=== PATIENT | female | born 1950 | race Caucasian/White ===

== ENCOUNTER 2020-04-12 11:38 | Emergency (ER) | payer MEDICARE, BC, OTHER ==
[2020-04-12] MEDS ORDERED: Sodium Chloride 0.9% 10 ML Syringe FLUSH PRN (11:46)
[2020-04-12] MEDS ORDERED: cefTRIAXone 1 GM in Sodium Chloride 0.9% 50 ML IV SCH (13:15)
[2020-04-12] MEDS ORDERED: Sodium Chloride 0.9% 1,000 ML IV SCH ×2 (13:15→15:30)
--- NOTE | 2020-04-12 13:28 | EDM.PDOC ---
ED HPI GENERAL MEDICAL PROBLEM - General Chief Complaint: General Time Seen by Provider: 04/12/20 12:55 Source of Information: Reports: Patient History Limitations: Reports: No Limitations - History of Present Illness INITIAL COMMENTS - FREE TEXT/NARRATIVE: Patient presented to the ED because weakness, poor oral intake, diarrhea and dizziness. 2 months ago-She started to have diarrhea which is watery, non-bloody. According to Jennifer she noticed that she have diarrhea after taking her iron supplements. There is no associated abdominal pain, nausea or vomiting. Denies any urinary symptoms 5 days ago- Poor appetite and is feeling weak and dizzy. She has just been eating toast and drinks gatorade 3 days ago-Started to have productive cough, no fever,chills or dyspnea 1 day ago- Her legs gave out and almost fell, weakness and dizziness are worse. - Related Data Allergies Allergy/AdvReac Type Severity Reaction Status Date / Time No Known Allergies Allergy Verified 04/12/20 12:32 Home Meds: Home Meds Ascorbic Acid [Vitamin C] 1,000 mg PO DAILY 04/12/20 [History] Aspirin 81 mg PO QPM 04/12/20 [History] Fenofibrate,Micronized [Fenofibrate] 134 mg PO QPM 04/12/20 [History] Ferrous Sulfate 325 mg PO BID 04/12/20 [History] Insulin Detemir [Levemir] 100 units SQ BID 04/12/20 [History] Latanoprost/Pf [Latanoprost 0.005% Eye Drop] 1 drop EYEBOTH BEDTIME 04/12/20 [History] Levothyroxine 125 mcg PO DAILY 04/12/20 [History] Mv-Mn/Folic AC/Calcium/Vit K1 [Women's 50 Plus Daily Formula] 1 tab PO QPM 04/12/20 [History] Simvastatin 40 mg PO BEDTIME 04/12/20 [History] Valsartan 320 mg PO DAILY 04/12/20 [History] Vit A/Vit C/Vit E/Zinc/Copper [Preservision] 1 tab PO BID 04/12/20 [History] amLODIPine Besylate [Amlodipine Besylate] 10 mg PO QPM 04/12/20 [History] glipiZIDE [Glucotrol XL] 10 mg PO WITHBREAKFAST 04/12/20 [History] glipiZIDE [Glucotrol] 5 mg PO WITHDINNER 04/12/20 [History] ED ROS GENERAL - Review of Systems Review Of Systems: See Below Constitutional: Reports: Weakness, Fatigue HEENT: Reports: No Symptoms Respiratory: Reports: Cough, Sputum Cardiovascular: Reports: Lightheadedness Endocrine: Reports: No Symptoms GI/Abdominal: Reports: Diarrhea : Reports: No Symptoms Musculoskeletal: Reports: No Symptoms Skin: Reports: No Symptoms Psychiatric: Reports: No Symptoms Hematologic/Lymphatic: Reports: No Symptoms Immunologic: Reports: No Symptoms ED EXAM, GENERAL - Physical Exam Exam: See Below Exam Limited By: No Limitations General Appearance: Alert, No Apparent Distress Eye Exam: Bilateral Eye: PERRL Ears: Normal External Exam, Normal Canal Nose: Normal Inspection, Normal Mucosa, No Blood Throat/Mouth: Normal Inspection, Normal Lips, Normal Teeth, Normal Gums Head: Atraumatic, Normocephalic Neck: Normal Inspection, Supple, Non-Tender, Full Range of Motion Respiratory/Chest: No Respiratory Distress, Decreased Breath Sounds Cardiovascular: Normal Peripheral Pulses, Regular Rate, Rhythm, No Edema, No Gallop Back Exam: Normal Inspection, Full Range of Motion Extremities: Normal Inspection, Normal Range of Motion, Non-Tender Course - Vital Signs Text/Narrative:: Labs/EKG/CXR/Head CT result was discussed with patient and her NS 1 L bolus Rocephin 1gm IV Code Status: Full code Last Recorded V/S: Last Vital Signs Temp 37.0 C 04/12/20 13:25 Pulse 87 04/12/20 13:25 Resp 18 04/12/20 13:25 BP 112/51 L 04/12/20 13:25 Pulse Ox 90 L 04/12/20 13:25 - Orders/Labs/Meds Orders: Active Orders 24 hr Category Date Time Status EKG Documentation Completion [RC] ASDIRECTED Care 04/12/20 11:48 Active CULTURE BLOOD [BC] Urgent Lab 04/12/20 13:15 Received CULTURE BLOOD [BC] Urgent Lab 04/12/20 13:20 Received Sodium Chloride 0.9% [Normal Saline] 1,000 ml Med 04/12/20 13:15 Active IV ASDIRECTED Sodium Chloride 0.9% [Saline Flush] Med 04/12/20 11:46 Active 10 ml FLUSH ASDIRECTED PRN Blood Culture x2 Reflex Set [OM.PC] Urgent Oth 04/12/20 13:01 Ordered Isolation [COMM] Routine Oth 04/12/20 13:06 Ordered Saline Lock Insert [OM.PC] Routine Oth 04/12/20 11:46 Ordered EKG 12 Lead [EK] Routine Ther 04/12/20 11:46 Ordered Medication Orders Acetaminophen (Tylenol) 650 mg PO Q4H PRN PRN Reason: Pain (Mild 1-3)/fever Albuterol (Proventil Neb Soln) 2.5 mg NEB Q2H PRN PRN Reason: Shortness Of Breath/wheezing Albuterol/Ipratropium (Duoneb 3.0-0.5 Mg/3 Ml) 3 ml NEB QIDRT JIM Last Admin: 04/12/20 18:06 Dose: Not Given Documented by: EDEL Ceftriaxone Sodium (Rocephin) 1 gm IVPUSH Q24H JIM Enoxaparin Sodium (Lovenox) 30 mg SUBCUT Q24H [facility] Last Admin: 04/12/20 18:07 Dose: Not Given Documented by: EDEL Sodium Chloride (Normal Saline) 1,000 mls @ 999 mls/hr IV ASDIRECTED [facility] Last Admin: 04/12/20 13:51 Dose: 999 mls/hr Documented by: MENECHE Sodium Chloride (Normal Saline) 1,000 mls @ 125 mls/hr IV ASDIRECTED [facility] Last Admin: 04/12/20 15:55 Dose: 125 mls/hr Documented by: EDEL Ondansetron HCl (Zofran) 4 mg IV Q4H PRN PRN Reason: Nausea/Vomiting Senna/Docusate Sodium (Senna Plus) 1 tab PO BID PRN PRN Reason: Constipation Sodium Chloride (Saline Flush) 10 ml FLUSH ASDIRECTED PRN PRN Reason: Keep Vein Open Labs: Laboratory Tests 04/12/20 04/12/20 04/12/20 Range/Units 12:05 12:05 12:05 WBC 4.8 (4.5-12.0) X10-3/uL RBC 3.62 (3.23-5.20) x10(6)uL Hgb 11.2 L (11.5-15.5) g/dL Hct 32.8 (30.0-51.3) % MCV 90.7 (80-96) fL MCH 30.9 (27.7-33.6) pg MCHC 34.1 (32.2-35.4) g/dL RDW 12.1 (11.5-15.5) % Plt Count 249 (125-369) X10(3)uL MPV 7.9 (7.4-10.4) fL Neut % (Auto) 61.1 (46-82) % Lymph % (Auto) 24.2 (13-37) % [place]isco[place] % (Auto) 14.2 H (4-12) % Eos % (Auto) 0 L (1.0-5.0) % Baso % (Auto) 1 (0-2) % Neut # (Auto) 2.9 (1.6-8.3) # Lymph # (Auto) 1.2 (0.6-5.0) # [place]iscoe # (Auto) 0.7 (0.0-1.3) # Eos # (Auto) 0.0 (0.0-0.8) # Baso # (Auto) 0.0 (0.0-0.2) # Sodium 136 (135-145) mmol/L Potassium 4.9 (3.5-5.3) mmol/L Chloride 101 (100-110) mmol/L Carbon Dioxide 22 (21-32) mmol/L BUN 61 H (7-18) mg/dL Creatinine 3.4 H* (0.55-1.02) mg/dL Est Cr Clr Drug Dosing TNP Estimated GFR (MDRD) 13 L (>60) BUN/Creatinine Ratio 17.9 (9-20) Glucose 79 L (80-116) mg/dL Lactic Acid (0.4-2.0) mmol/L Calcium 8.5 L (8.6-10.2) mg/dL Total Bilirubin 0.4 (0.1-1.3) mg/dL AST 87 H (5-25) IU/L ALT 61 H (12-36) U/L Alkaline Phosphatase 44 L (56-112) IU/L Troponin I 26.9 (4.0-60.3) pg/mL NT-Pro-B Natriuret Pep 183 H (<=125) pg/mL Total Protein 7.2 (6.0-8.0) g/dL Albumin 3.1 L (3.2-4.6) g/dL Globulin 4.1 g/dL Albumin/Globulin Ratio 0.8 10/16/20 Range/Units 13:15 WBC (4.5-12.0) X10-3/uL RBC (3.23-5.20) x10(6)uL Hgb (11.5-15.5) g/dL Hct (30.0-51.3) % MCV (80-96) fL MCH (27.7-33.6) pg MCHC (32.2-35.4) g/dL RDW (11.5-15.5) % Plt Count (125-369) X10(3)uL MPV (7.4-10.4) fL Neut % (Auto) (46-82) % Lymph % (Auto) (13-37) % [place]iscoe % (Auto) (4-12) % Eos % (Auto) (1.0-5.0) % Baso % (Auto) (0-2) % Neut # (Auto) (1.6-8.3) # Lymph # (Auto) (0.6-5.0) # Briscoe # (Auto) (0.0-1.3) # Eos # (Auto) (0.0-0.8) # Baso # (Auto) (0.0-0.2) # Sodium (135-145) mmol/L Potassium (3.5-5.3) mmol/L Chloride (100-110) mmol/L Carbon Dioxide (21-32) mmol/L BUN (7-18) mg/dL Creatinine (0.55-1.02) mg/dL Est Cr Clr Drug Dosing Estimated GFR (MDRD) (>60) BUN/Creatinine Ratio (9-20) Glucose (80-116) mg/dL Lactic Acid 0.5 (0.4-2.0) mmol/L Calcium (8.6-10.2) mg/dL Total Bilirubin (0.1-1.3) mg/dL AST (5-25) IU/L ALT (12-36) U/L Alkaline Phosphatase (56-112) IU/L Troponin I (4.0-60.3) pg/mL NT-Pro-B Natriuret Pep (<=125) pg/mL Total Protein (6.0-8.0) g/dL Albumin (3.2-4.6) g/dL Globulin g/dL Albumin/Globulin Ratio Meds: Medications Generic Name Dose Route Start Last Admin Trade Name Alyssa PRN Reason Stop Dose Admin Acetaminophen 650 mg 04/12/20 13:51 Tylenol PO Q4H PRN Pain (Mild 1-3)/fever Albuterol 2.5 mg 04/12/20 13:51 Proventil Neb Soln NEB Q2H PRN Shortness Of Breath/wheezing Albuterol/Ipratropium 3 ml 04/12/20 16:00 04/12/20 18:06 Duoneb 3.0-0.5 Mg/3 Ml NEB Not Given QIDRT JIM Ceftriaxone Sodium 1 gm 04/13/20 16:00 Rocephin IVPUSH Q24H JIM Enoxaparin Sodium 30 mg 04/12/20 16:15 04/12/20 18:07 Lovenox SUBCUT Not Given Q24H JIM Sodium Chloride 1,000 mls @ 999 mls/hr 04/12/20 13:15 04/12/20 13:51 Normal Saline IV 999 mls/hr ASDIRECTED JIM Administration Sodium Chloride 1,000 mls @ 125 mls/hr 04/12/20 15:30 04/12/20 15:55 Normal Saline IV 125 mls/hr ASDIRECTED JIM Administration Ondansetron HCl 4 mg 04/12/20 13:51 Zofran IV Q4H PRN Nausea/Vomiting Senna/Docusate Sodium 1 tab 04/12/20 13:51 Senna Plus PO BID PRN Constipation Sodium Chloride 10 ml 04/12/20 11:46 Saline Flush FLUSH ASDIRECTED PRN Keep Vein Open Discontinued Medications Generic Name Dose Route Start Last Admin Trade Name Alyssa PRN Reason Stop Dose Admin Dexamethasone 6 mg 04/12/20 18:32 Dexamethasone IVPUSH 04/12/20 18:33 NOW STA Ceftriaxone Sodium 1 gm/ 50 mls @ 200 mls/hr 04/12/20 13:15 04/12/20 15:55 Sodium Chloride IV 04/12/20 18:00 200 mls/hr Q24H JIM Administration Departure - Departure Time of Disposition: 13:00 Disposition: Admitted As Inpatient 65 Condition: Good Clinical Impression: Pneumonia, Dehydration, PIOTR (acute kidney injury), Weakness - Discharge Information Sepsis Event Note (ED) - Focused Exam Vital Signs: Vital Signs Temp Pulse Resp BP Pulse Ox 04/12/20 13:25 37.0 C 87 18 112/51 L 90 L - My Orders Last 24 Hours: My Active Orders 04/12/20 11:46 Sodium Chloride 0.9% [Saline Flush] 10 ml FLUSH ASDIRECTED PRN Saline Lock Insert [OM.PC] Routine EKG 12 Lead [EK] Routine 04/12/20 11:48 EKG Documentation Completion [RC] ASDIRECTED 04/12/20 13:01 Blood Culture x2 Reflex Set [OM.PC] Urgent 04/12/20 13:06 Isolation [COMM] Routine 04/12/20 13:15 CULTURE BLOOD [BC] Urgent Sodium Chloride 0.9% [Normal Saline] 1,000 ml IV ASDIRECTED 04/12/20 13:20 CULTURE BLOOD [BC] Urgent - Assessment/Plan Last 24 Hours: My Active Orders 04/12/20 11:46 Sodium Chloride 0.9% [Saline Flush] 10 ml FLUSH ASDIRECTED PRN Saline Lock Insert [OM.PC] Routine EKG 12 Lead [EK] Routine 04/12/20 11:48 EKG Documentation Completion [RC] ASDIRECTED 04/12/20 13:01 Blood Culture x2 Reflex Set [OM.PC] Urgent 04/12/20 13:06 Isolation [COMM] Routine 04/12/20 13:15 CULTURE BLOOD [BC] Urgent Sodium Chloride 0.9% [Normal Saline] 1,000 ml IV ASDIRECTED 04/12/20 13:20 CULTURE BLOOD [BC] Urgent
[2020-04-12] MEDS ORDERED: Albuterol 0.083% 2.5 MG/3 ML Neb Soln NEB PRN (13:51)
[2020-04-12] MEDS ORDERED: Ondansetron 4 MG/2 ML SDV IV PRN (13:51)
[2020-04-12] MEDS ORDERED: Acetaminophen 325 MG Tab PO PRN (13:51)
[2020-04-12] MEDS ORDERED: Enoxaparin 40 MG/0.4 ML Syringe SUBCUT SCH (14:00)
--- NOTE | 2020-04-12 14:35 | CT ---
INDICATION: Weakness/fall. CT HEAD WITHOUT CONTRAST: Spiral 3.75 mm axial sections were obtained through the brain without contrast with sagittal, axial and coronal reconstructions 04/12/20 - no comparisons. Total exam DLP was 1322.30 mGy-cm. Multiple retention cysts are noted at the base of the right maxillary antrum with the paranasal sinuses and mastoid air cells otherwise well aerated. No definite cranial abnormality was identified. Calcification is noted in the basilar artery and minimally in the internal carotid arteries. No shift of midline structures or ventricular abnormalities were identified. Septum pellucidum cavum is noted - normal variant. Orbits appeared to be intact. No definite abnormal areas of density were identified - no bleeding site or hematoma was identified. IMPRESSION: 1. No acute intracranial abnormality. 2. Cerebrovascular disease with some arterial calcifications. 3. Multiple retention cysts right maxillary antrum. Report was called to Dr. Caro at 1236 hours. [facility]
--- NOTE | 2020-04-12 14:38 | CR ---
INDICATION: Weakness, dizziness. CHEST, ONE VIEW: An AP upright portable view of the chest 04/12/20 - no comparison. Linear densities and infiltrate are noted in the left mid to lower lung field, which may be on the basis of atelectasis and infiltrate, such as secondary to pneumonia. There are also similar changes on the right in the mid lung field and in the upper lung field. Findings may all be on the basis of pneumonia with some atelectatic changes. This should be correlated clinically. The heart did not appear grossly enlarged, allowing for the poor inspiration and AP positioning. Evidence of exogenous obesity is noted. Overlying EKG lead noted. Report was called to Dr. Caro at 1236 hours. [facility]
[2020-04-12] MEDS ORDERED: Albuterol/Ipratropium 3.0-0.5 MG/3 ML Neb Soln NEB SCH (16:00)
[2020-04-12] MEDS ORDERED: Enoxaparin 30 MG/0.3 ML Syringe SUBCUT SCH (16:15)
[2020-04-12] MEDS ORDERED: Dexamethasone 4 MG/ML SDV IVPUSH STA (18:32)
[2020-04-12] MEDS ORDERED: Acetaminophen 500 MG Tab PO ONE (18:35)
[2020-04-13] MEDS ORDERED: cefTRIAXone 1 GM Vial IVPUSH SCH (16:00)
== END 2020-04-12 20:12 ==
LOC: FB.ED 11:38 → UNDOADMIN 13:51 → FB.MS 13:51 → FB.ED 20:12 → UNDODISIN 20:12
DX: U07.1 COVID-19 (principal); J18.9 Pneumonia, unspecified organism; E86.0 Dehydration; N17.9 Acute kidney failure, unspecified; R53.1 Weakness; Z79.82 Long term (current) use of aspirin; Z79.890 Hormone replacement therapy; Z79.4 Long term (current) use of insulin; Z79.899 Other long term (current) drug therapy
CPT/HCPCS: 36415; 70450; 71045; 80053; 82962; 83605; 83880; 84484; 85025; 87040; 87804; 93005; 99284; 99285; A9270; J0696; J1100; J7030; U0002